=== PATIENT | male | born 1965 | race African-American/Black ===

== ENCOUNTER → 2017-03-17 | Outpatient (CLI) | payer BC ==
[2017-03-17 09:17] LABS: BASOPHILS % 0.8 % (0.0-2.0); EOSINOPHILS % 4.9 % (0.0-5.0); HEMATOCRIT. 44.9 % (42.0-52.0); HEMOGLOBIN. 15.1 g/dL (14.0-18.0); LYMPHOCYTES % 32.7 % (20.0-50.0); MEAN CORPUSCULAR HEMOGLOBIN 28.4 pg (28.0-32.0); MEAN CORPUSCULAR VOLUME 84.5 fL (80.0-94.0); MEAN PLATELET VOLUME 8.7 fl (7.4-10.4); MONOCYTES % 10.8 % (2.0-8.0); NEUTROPHILS % 50.8 % (40.0-76.0); PLATELET 154 x1000/uL (130-400); RED BLOOD CELL COUNT 5.32 mill/uL (4.7-6.1); RED CELL DISTRIBUTION WIDTH 15.5 % (11.6-14.6)
[2017-03-17 09:43] LABS: CARBON DIOXIDE 35 mEq/L (21-32); CHLORIDE 100 mEq/L (98-107); HDL CHOLESTEROL 35 mg/dL (40-59); LDL CHOLESTEROL 46 mg/dL (5-100)
[2017-03-17 09:44] LABS: CLARITY URINE CLEAR (CLEAR); COLOR URINE YELLOW (YELLOW); GLUCOSE URINE NEGATIVE (NEGATIVE); KETONES URINE NEGATIVE (NEGATIVE); LEUKOCYTE ESTERASE URINE NEGATIVE (NEGATIVE); NITRITE URINE NEGATIVE (NEGATIVE); OCCULT BLOOD URINE NEGATIVE (NEGATIVE); PH URINE 7.5 (4.5-8.0); PROTEIN URINE TRACE (NEGATIVE); SPECIFIC GRAVITY URINE 1.016 (1.005-1.030); UROBILINOGEN URINE 0.2 E.U./dL (0.2-1.0)
[2017-03-17 13:35] LABS: PROSTRATE SPECIFIC AG TOTAL 1.19 ng/mL (0.0-4.0)
== END | disposition home or self-care (01) ==
LOC: LAB 08:37
PROVIDERS: ATTEND Internal Medicine
DX: Z11.59 Encounter for screening for other viral diseases (principal); I10 Essential (primary) hypertension; E78.2 Mixed hyperlipidemia; R35.0 Frequency of micturition
CPT/HCPCS: 36415; 80053; 80061; 81001; 84153; 85025; 86803

== ENCOUNTER 2017-09-01 09:02 | Emergency (ER) | payer BC ==
[~2017-09-01] VITALS: Ht 177.8 cm; Wt 87.0 kg
[2017-09-01] MEDS ORDERED: SODIUM CHLORIDE 0.9% 1000ML BAG (SEPSIS BOLUS) IV ONE (09:45)
[2017-09-01] MEDS ORDERED: KETOROLAC 30MG/ML VIAL IV ONE (10:00)
[2017-09-01 10:15] LABS: BASOPHILS % 0.5 % (0.0-2.0); EOSINOPHILS % 0.5 % (0.0-5.0); HEMATOCRIT. 45.2 % (42.0-52.0); HEMOGLOBIN. 15.1 g/dL (14.0-18.0); LYMPHOCYTES % 9.8 % (20.0-50.0); MEAN CORPUSCULAR HEMOGLOBIN 28.8 pg (28.0-32.0); MEAN CORPUSCULAR VOLUME 86.1 fL (80.0-94.0); MEAN PLATELET VOLUME 8.8 fl (7.4-10.4); MONOCYTES % 8.8 % (2.0-8.0); NEUTROPHILS % 80.4 % (40.0-76.0); PLATELET 126 x1000/uL (130-400); RED BLOOD CELL COUNT 5.25 mill/uL (4.7-6.1); RED CELL DISTRIBUTION WIDTH 15.6 % (11.6-14.6)
[2017-09-01 10:18] LABS: INR 1.1; PARTIAL THROMBOPLASTIN TIME 27.6 sec (23.4-31.0); PROTHROMBIN TIME 11.2 sec (9.4-11.6)
[2017-09-01 10:25] LABS: CARBON DIOXIDE 31 mEq/L (21-32); CHLORIDE 101 mEq/L (98-107)
[2017-09-01 10:26] LABS: TROPONIN I < 0.02 ng/mL (0.00-0.04)
[2017-09-01 10:43] LABS: CLARITY URINE CLEAR (CLEAR); COLOR URINE YELLOW (YELLOW); GLUCOSE URINE NEGATIVE (NEGATIVE); KETONES URINE NEGATIVE (NEGATIVE); LEUKOCYTE ESTERASE URINE NEGATIVE (NEGATIVE); NITRITE URINE NEGATIVE (NEGATIVE); OCCULT BLOOD URINE TRACE (NEGATIVE); PROTEIN URINE NEGATIVE (NEGATIVE); SPECIFIC GRAVITY URINE 1.016 (1.005-1.030); UROBILINOGEN URINE 0.2 E.U./dL (0.2-1.0)
[2017-09-01] MEDS ORDERED: POTASSIUM CHLORIDE 20MEQ TABLET SR PO ONE (10:45)
[2017-09-01] MEDS ORDERED: PENICILLIN G BENZATHINE 1,200,000 UNITS/2ML SYR IM ONE (11:15)
[2017-09-01] MEDS ORDERED: CEFTRIAXONE 1 G PREMIX 50 ML IV ONE (11:15)
[2017-09-01] MEDS ORDERED: DEXAMETHASONE 10 MG/ML VIAL IV ONE (11:15)
[2017-09-01 14:53] VITALS: BP 169/99
== END 2017-09-01 15:01 | disposition home or self-care (01) ==
LOC: ER 09:43
DX: J02.0 Streptococcal pharyngitis (principal); I10 Essential (primary) hypertension; R73.9 Hyperglycemia, unspecified; R26.89 Other abnormalities of gait and mobility
CPT/HCPCS: 36415; 71010; 80053; 81001; 83605; 83690; 83735; 83880; 84484; 85025; 85610; 85730; 87040; 87086; 87430; 87804; 93005; 96361; 96365; 96372; 96375; 99285; J0561; J0696; J1100; J1885; J7030; Z7610

== ENCOUNTER → 2017-09-07 | Outpatient (CLI) | payer BC ==
[2017-09-07 11:36] LABS: CARBON DIOXIDE 37 mEq/L (21-32); CHLORIDE 98 mEq/L (98-107); HDL CHOLESTEROL 42 mg/dL (40-59); LDL CHOLESTEROL 59 mg/dL (5-100)
== END | disposition home or self-care (01) ==
LOC: LAB 10:43
PROVIDERS: ATTEND Internal Medicine
DX: E87.6 Hypokalemia (principal); E78.2 Mixed hyperlipidemia
CPT/HCPCS: 36415; 80048; 80061; 87186

== ENCOUNTER → 2017-09-28 | Outpatient (CLI) | payer BC ==
[2017-09-28 09:27] LABS: BASOPHILS % 0.8 % (0.0-2.0); EOSINOPHILS % 8.9 % (0.0-5.0); HEMATOCRIT. 47.2 % (42.0-52.0); HEMOGLOBIN. 15.7 g/dL (14.0-18.0); LYMPHOCYTES % 31.3 % (20.0-50.0); MEAN CORPUSCULAR HEMOGLOBIN 28.6 pg (28.0-32.0); MEAN CORPUSCULAR VOLUME 86.1 fL (80.0-94.0); MEAN PLATELET VOLUME 8.5 fl (7.4-10.4); MONOCYTES % 12.9 % (2.0-8.0); NEUTROPHILS % 46.1 % (40.0-76.0); PLATELET 155 x1000/uL (130-400); RED BLOOD CELL COUNT 5.48 mill/uL (4.7-6.1); RED CELL DISTRIBUTION WIDTH 16.1 % (11.6-14.6)
[2017-09-28 09:32] LABS: CLARITY URINE CLEAR (CLEAR); COLOR URINE YELLOW (YELLOW); KETONES URINE NEGATIVE (NEGATIVE); LEUKOCYTE ESTERASE URINE TRACE (NEGATIVE); NITRITE URINE NEGATIVE (NEGATIVE); OCCULT BLOOD URINE NEGATIVE (NEGATIVE); PH URINE 7.5 (4.5-8.0); PROTEIN URINE 1+ (NEGATIVE); SPECIFIC GRAVITY URINE 1.016 (1.005-1.030); UROBILINOGEN URINE 0.2 E.U./dL (0.2-1.0)
[2017-09-28 10:07] LABS: CARBON DIOXIDE 35 mEq/L (21-32); CHLORIDE 98 mEq/L (98-107); PHOSPHORUS 3.4 mg/dL (2.5-4.9); T4 FREE 1.02 ng/dL (0.76-1.46)
[2017-09-29 10:11] LABS: MICROALBUMIN RANDOM URINE 165.4 ug/mL (Not Estab.)
== END | disposition home or self-care (01) ==
LOC: LAB 08:59
PROVIDERS: ATTEND Internal Medicine Nephrology
DX: I10 Essential (primary) hypertension (principal)
CPT/HCPCS: 36415; 80053; 81001; 82043; 82088; 82533; 82570; 83735; 84100; 84439; 84443; 85025

== ENCOUNTER → 2017-12-02 | Outpatient (CLI) | payer BC ==
[2017-12-02 08:35] LABS: CLARITY URINE CLEAR (CLEAR); COLOR URINE YELLOW (YELLOW); KETONES URINE NEGATIVE (NEGATIVE); LEUKOCYTE ESTERASE URINE NEGATIVE (NEGATIVE); NITRITE URINE NEGATIVE (NEGATIVE); OCCULT BLOOD URINE TRACE (NEGATIVE); PROTEIN URINE 1+ (NEGATIVE); SPECIFIC GRAVITY URINE 1.015 (1.005-1.030); UROBILINOGEN URINE 0.2 E.U./dL (0.2-1.0)
[2017-12-02 08:50] LABS: CHLORIDE 104 mEq/L (98-107)
== END | disposition home or self-care (01) ==
LOC: LAB 08:04
PROVIDERS: ATTEND Internal Medicine Nephrology
DX: I10 Essential (primary) hypertension (principal); R80.0 Isolated proteinuria
CPT/HCPCS: 36415; 80048; 81003; 83735

== ENCOUNTER → 2017-12-16 | Outpatient (CLI) | payer BC ==
[2017-12-16 09:12] LABS: CHLORIDE 100 mEq/L (98-107)
== END | disposition home or self-care (01) ==
LOC: LAB 08:37
PROVIDERS: ATTEND Internal Medicine Nephrology
DX: I10 Essential (primary) hypertension (principal)
CPT/HCPCS: 36415; 80048

== ENCOUNTER → 2017-12-22 | Outpatient (CLI) | payer BC ==
[2017-12-22 08:55] LABS: EOSINOPHILS % 3.6 % (0.0-5.0); HEMATOCRIT. 47.5 % (42.0-52.0); HEMOGLOBIN. 15.6 g/dL (14.0-18.0); LYMPHOCYTES % 36.2 % (20.0-50.0); MEAN CORPUSCULAR HEMOGLOBIN 28.3 pg (28.0-32.0); MEAN CORPUSCULAR VOLUME 85.9 fL (80.0-94.0); MEAN PLATELET VOLUME 8.3 fl (7.4-10.4); MONOCYTES % 13.9 % (2.0-8.0); NEUTROPHILS % 45.3 % (40.0-76.0); PLATELET 149 x1000/uL (130-400); RED BLOOD CELL COUNT 5.53 mill/uL (4.7-6.1)
[2017-12-22 08:58] LABS: CLARITY URINE CLEAR (CLEAR); COLOR URINE YELLOW (YELLOW); KETONES URINE NEGATIVE (NEGATIVE); LEUKOCYTE ESTERASE URINE NEGATIVE (NEGATIVE); NITRITE URINE NEGATIVE (NEGATIVE); OCCULT BLOOD URINE TRACE (NEGATIVE); PH URINE 7.5 (4.5-8.0); PROTEIN URINE 1+ (NEGATIVE); SPECIFIC GRAVITY URINE 1.012 (1.005-1.030); UROBILINOGEN URINE 0.2 E.U./dL (0.2-1.0)
[2017-12-22 13:57] LABS: CHLORIDE 102 mEq/L (98-107)
== END | disposition home or self-care (01) ==
LOC: LAB 08:36
PROVIDERS: ATTEND Internal Medicine Nephrology
DX: I10 Essential (primary) hypertension (principal)
CPT/HCPCS: 36415; 80053; 81003; 83735; 85025; 87086

== ENCOUNTER → 2018-01-28 | Outpatient (CLI) | payer BC ==
[2018-01-28 08:31] LABS: BASOPHILS % 1.2 % (0.0-2.0); EOSINOPHILS % 2.9 % (0.0-5.0); HEMATOCRIT. 46.5 % (42.0-52.0); HEMOGLOBIN. 15.3 g/dL (14.0-18.0); LYMPHOCYTES % 38.6 % (20.0-50.0); MEAN CORPUSCULAR HEMOGLOBIN 27.7 pg (28.0-32.0); MEAN CORPUSCULAR VOLUME 84.5 fL (80.0-94.0); MEAN PLATELET VOLUME 8.6 fl (7.4-10.4); MONOCYTES % 12.5 % (2.0-8.0); NEUTROPHILS % 44.8 % (40.0-76.0); PLATELET 165 x1000/uL (130-400); RED BLOOD CELL COUNT 5.51 mill/uL (4.7-6.1); RED CELL DISTRIBUTION WIDTH 15.8 % (11.6-14.6)
[2018-01-28 08:34] LABS: CLARITY URINE CLEAR (CLEAR); COLOR URINE YELLOW (YELLOW); KETONES URINE NEGATIVE (NEGATIVE); LEUKOCYTE ESTERASE URINE TRACE (NEGATIVE); NITRITE URINE NEGATIVE (NEGATIVE); OCCULT BLOOD URINE 1+ (NEGATIVE); PH URINE 8.5 (4.5-8.0); PROTEIN URINE 1+ (NEGATIVE); SPECIFIC GRAVITY URINE 1.015 (1.005-1.030); UROBILINOGEN URINE 0.2 E.U./dL (0.2-1.0)
[2018-01-28 08:54] LABS: CHLORIDE 99 mEq/L (98-107)
== END | disposition home or self-care (01) ==
LOC: LAB 08:02
PROVIDERS: ATTEND Internal Medicine Nephrology
DX: I10 Essential (primary) hypertension (principal); E87.6 Hypokalemia
CPT/HCPCS: 36415; 80048; 81003; 85025; 87086

== ENCOUNTER 2018-03-02 08:21 | Emergency (ER) | payer BC ==
[~2018-03-02] VITALS: Ht 177.8 cm; Wt 87.0 kg
[2018-03-02] MEDS ORDERED: DIAZEPAM 2 MG TABLET PO ONE (09:00)
[2018-03-02] MEDS ORDERED: ONDANSETRON 4MG ODT PO ONE (09:00)
[2018-03-02] MEDS ORDERED: TRAMADOL 50MG TABLET PO ONE (09:00)
[2018-03-02 11:26] VITALS: BP 144/84
== END 2018-03-02 11:29 | disposition home or self-care (01) ==
LOC: ER 08:53
DX: S16.1XXA Strain of muscle, fascia and tendon at neck level, initial encounter (principal); R51 Headache; I10 Essential (primary) hypertension; V43.52XA Car driver injured in collision with other type car in traffic accident, initial encounter; V49.88XA Car occupant (driver) (passenger) injured in other specified transport accidents, initial encounter; Y93.89 Activity, other specified; Y99.8 Other external cause status; Y92.410 Unspecified street and highway as the place of occurrence of the external cause
CPT/HCPCS: 70450; 72125; 99284; Q0162

== ENCOUNTER → 2018-03-06 | Outpatient (CLI) | payer BC ==
[2018-03-06 09:33] LABS: KETONES URINE NEGATIVE (NEGATIVE); LEUKOCYTE ESTERASE URINE NEGATIVE (NEGATIVE); NITRITE URINE NEGATIVE (NEGATIVE); OCCULT BLOOD URINE TRACE (NEGATIVE); PH URINE 7.5 (4.5-8.0); PROTEIN URINE 1+ (NEGATIVE); SPECIFIC GRAVITY URINE 1.013 (1.005-1.030); UROBILINOGEN URINE 0.2 E.U./dL (0.2-1.0)
[2018-03-06 09:35] LABS: CLARITY URINE CLEAR (CLEAR); COLOR URINE YELLOW (YELLOW)
[2018-03-06 09:41] LABS: CHLORIDE 104 mEq/L (98-107)
== END | disposition home or self-care (01) ==
LOC: LAB 08:43
PROVIDERS: ATTEND Internal Medicine Nephrology
DX: I10 Essential (primary) hypertension (principal); E87.6 Hypokalemia
CPT/HCPCS: 36415; 80048; 81003; 83735

== ENCOUNTER → 2019-01-18 | Outpatient (CLI) | payer BC ==
[2019-01-18 09:37] LABS: EOSINOPHILS % 3.6 % (0.0-5.0); HEMATOCRIT. 46.4 % (42.0-52.0); HEMOGLOBIN. 15.6 g/dL (14.0-18.0); LYMPHOCYTES % 31.9 % (20.0-50.0); MEAN CORPUSCULAR HEMOGLOBIN 29.4 pg (28.0-32.0); MEAN CORPUSCULAR VOLUME 87.7 fL (80.0-94.0); MEAN PLATELET VOLUME 8.1 fl (7.4-10.4); MONOCYTES % 12.2 % (2.0-8.0); NEUTROPHILS % 51.3 % (40.0-76.0); PLATELET 166 x1000/uL (130-400); RED CELL DISTRIBUTION WIDTH 15.8 % (11.6-14.6)
[2019-01-18 09:41] LABS: CLARITY URINE CLEAR (CLEAR); COLOR URINE YELLOW (YELLOW); KETONES URINE NEGATIVE (NEGATIVE); LEUKOCYTE ESTERASE URINE NEGATIVE (NEGATIVE); NITRITE URINE NEGATIVE (NEGATIVE); OCCULT BLOOD URINE NEGATIVE (NEGATIVE); PROTEIN URINE 1+ (NEGATIVE); SPECIFIC GRAVITY URINE 1.022 (1.005-1.030); UROBILINOGEN URINE 0.2 E.U./dL (0.2-1.0)
[2019-01-18 09:47] LABS: CHLORIDE 102 mEq/L (98-107)
== END | disposition home or self-care (01) ==
LOC: LAB 09:08
PROVIDERS: ATTEND Internal Medicine Nephrology
DX: I10 Essential (primary) hypertension (principal); E87.6 Hypokalemia
CPT/HCPCS: 36415; 80048

== ENCOUNTER → 2019-03-28 | Outpatient (CLI) | payer BC ==
[2019-03-28 08:48] LABS: CHLORIDE 105 mEq/L (98-107)
[2019-03-28 08:48] LABS: CLARITY URINE CLEAR (CLEAR); COLOR URINE YELLOW (YELLOW); SPECIFIC GRAVITY URINE 1.012 (1.005-1.030)
[2019-03-28 08:49] LABS: KETONES URINE NEGATIVE (NEGATIVE); LEUKOCYTE ESTERASE URINE NEGATIVE (NEGATIVE); NITRITE URINE NEGATIVE (NEGATIVE); OCCULT BLOOD URINE NEGATIVE (NEGATIVE); PROTEIN URINE TRACE (NEGATIVE); UROBILINOGEN URINE 0.2 E.U./dL (0.2-1.0)
== END | disposition home or self-care (01) ==
LOC: LAB 08:14
PROVIDERS: ATTEND Internal Medicine Nephrology
DX: I10 Essential (primary) hypertension (principal)
CPT/HCPCS: 36415; 80048

== ENCOUNTER 2019-04-02 19:18 | Emergency (ER) | payer BC ==
[~2019-04-02] VITALS: Ht 175.3 cm; Wt 87.0 kg
[2019-04-02] MEDS ORDERED: KETOROLAC 30MG/ML VIAL IV STA (21:56)
[2019-04-02 23:06] LABS: BASOPHILS % 1.4 % (0.0-2.0); EOSINOPHILS % 5.6 % (0.0-5.0); HEMATOCRIT. 44.8 % (42.0-52.0); LYMPHOCYTES % 33.8 % (20.0-50.0); MEAN CORPUSCULAR VOLUME 89.5 fL (80.0-94.0); MEAN PLATELET VOLUME 9.3 fl (7.4-10.4); MONOCYTES % 10.6 % (2.0-8.0); NEUTROPHILS % 48.6 % (40.0-76.0); PLATELET 135 x1000/uL (130-400); RED CELL DISTRIBUTION WIDTH 15.1 % (11.6-14.6)
[2019-04-02 23:14] LABS: CHLORIDE 104 mEq/L (98-107)
[2019-04-03 00:50] VITALS: BP 145/75
== END 2019-04-03 01:03 | disposition home or self-care (01) ==
LOC: ER 19:18
DX: M62.838 Other muscle spasm (principal); I10 Essential (primary) hypertension
CPT/HCPCS: 36415; 71045; 80053; 84484; 85025; 93005; 96374; 99284; J1885; Z7610

== ENCOUNTER 2019-08-05 19:02 | Emergency (ER) | payer BC, OTHER ==
[~2019-08-05] VITALS: Ht 175.3 cm; Wt 84.0 kg
[2019-08-05 19:56] VITALS: BP 132/84
== END 2019-08-05 19:57 | disposition home or self-care (01) ==
LOC: ER 19:02
DX: Z77.21 Contact with and (suspected) exposure to potentially hazardous body fluids (principal); I10 Essential (primary) hypertension
CPT/HCPCS: 99281

== ENCOUNTER → 2020-04-08 | Outpatient (CLI) | payer BC ==
[2020-04-08 10:25] LABS: BASOPHILS % 0.7 % (0.0-2.0); EOSINOPHILS % 1.9 % (0.0-5.0); HEMATOCRIT. 47.6 % (42.0-52.0); HEMOGLOBIN. 16.2 g/dL (14.0-18.0); LYMPHOCYTES % 36.8 % (20.0-50.0); MEAN CORPUSCULAR VOLUME 88.1 fL (80.0-94.0); MEAN PLATELET VOLUME 9.3 fl (7.4-10.4); MONOCYTES % 10.6 % (2.0-8.0); PLATELET 136 x1000/uL (130-400); RED CELL DISTRIBUTION WIDTH 15.4 % (11.6-14.6)
[2020-04-08 10:37] LABS: CHLORIDE 100 mEq/L (98-107)
[2020-04-08 10:44] LABS: LDL CHOLESTEROL 116 mg/dL (5-100)
[2020-04-08 10:45] LABS: HDL CHOLESTEROL 39 mg/dL (40-59)
[2020-04-09 17:06] LABS: *CREATININE RANDOM URINE 210.3 mg/dL (Not Estab.); MICROALBUMIN RANDOM URINE 655.5 ug/mL (Not Estab.)
== END | disposition home or self-care (01) ==
LOC: LAB 09:44
PROVIDERS: ATTEND Internal Medicine
DX: E11.65 Type 2 diabetes mellitus with hyperglycemia (principal); E78.2 Mixed hyperlipidemia
CPT/HCPCS: 36415; 80053; 80061; 82043; 82570; 83036; 85025

== ENCOUNTER → 2020-09-11 | Outpatient (CLI) | payer BC ==
[2020-09-11 08:51] LABS: CHLORIDE 105 mEq/L (98-107)
== END | disposition home or self-care (01) ==
LOC: LAB 08:25
PROVIDERS: ATTEND Internal Medicine Nephrology
DX: I12.9 Hypertensive chronic kidney disease with stage 1 through stage 4 chronic kidney disease, or unspecified chronic kidney disease (principal); N18.2 Chronic kidney disease, stage 2 (mild)
CPT/HCPCS: 36415; 80053

== ENCOUNTER → 2021-04-05 | Outpatient (CLI) | payer BC ==
[2021-04-05 11:10] LABS: HEMATOCRIT. 41.1 % (42.0-52.0); HEMOGLOBIN. 14.2 g/dL (14.0-18.0); MEAN CORPUSCULAR HEMOGLOBIN 30.1 pg (28.0-32.0); MEAN CORPUSCULAR VOLUME 87.2 fL (80.0-94.0); PLATELET 164 x1000/uL (130-400); RED BLOOD CELL COUNT 4.72 mill/uL (4.7-6.1); RED CELL DISTRIBUTION WIDTH 14.8 % (11.6-14.6)
[2021-04-05 11:14] LABS: CLARITY URINE CLEAR (CLEAR); COLOR URINE YELLOW (YELLOW); KETONES URINE NEGATIVE (NEGATIVE); LEUKOCYTE ESTERASE URINE NEGATIVE (NEGATIVE); NITRITE URINE NEGATIVE (NEGATIVE); OCCULT BLOOD URINE NEGATIVE (NEGATIVE); PROTEIN URINE 1+ (NEGATIVE); SPECIFIC GRAVITY URINE 1.015 (1.005-1.030); UROBILINOGEN URINE 0.2 E.U./dL (0.2-1.0)
[2021-04-05 11:53] LABS: CHLORIDE 95 mEq/L (98-107)
[2021-04-05 18:48] LABS: PLATELET ESTIMATE NORMAL
[2021-04-06 10:07] LABS: *CREATININE RANDOM URINE 168.1 mg/dL (Not Estab.); MICROALBUMIN RANDOM URINE 100.5 ug/mL (Not Estab.)
== END | disposition home or self-care (01) ==
LOC: LAB 10:30
PROVIDERS: ATTEND Internal Medicine Nephrology
DX: I10 Essential (primary) hypertension (principal); E78.5 Hyperlipidemia, unspecified; E87.6 Hypokalemia
CPT/HCPCS: 36415; 80053; 81003; 82043; 82570; 85025

== ENCOUNTER → 2021-05-10 | Outpatient (CLI) | payer BC ==
[2021-05-10 10:21] LABS: BASOPHILS % 0.9 % (0.0-2.0); EOSINOPHILS % 1.6 % (0.0-5.0); HEMATOCRIT. 42.4 % (42.0-52.0); HEMOGLOBIN. 14.4 g/dL (14.0-18.0); LYMPHOCYTES % 33.5 % (20.0-50.0); MEAN CORPUSCULAR HEMOGLOBIN 29.8 pg (28.0-32.0); MEAN CORPUSCULAR VOLUME 87.8 fL (80.0-94.0); MEAN PLATELET VOLUME 8.3 fl (7.4-10.4); PLATELET 181 x1000/uL (130-400); RED BLOOD CELL COUNT 4.83 mill/uL (4.7-6.1)
[2021-05-10 10:33] LABS: CLARITY URINE CLEAR (CLEAR); COLOR URINE DARK YELLOW (YELLOW); KETONES URINE TRACE (NEGATIVE); LEUKOCYTE ESTERASE URINE NEGATIVE (NEGATIVE); NITRITE URINE NEGATIVE (NEGATIVE); OCCULT BLOOD URINE NEGATIVE (NEGATIVE); PH URINE 5.5 (4.5-8.0); PROTEIN URINE 1+ (NEGATIVE); SPECIFIC GRAVITY URINE 1.023 (1.005-1.030)
[2021-05-10 10:44] LABS: CHLORIDE 106 mEq/L (98-107)
[2021-05-10 10:54] LABS: LDL CHOLESTEROL 109 mg/dL (5-100)
[2021-05-10 10:56] LABS: HDL CHOLESTEROL 47 mg/dL (40-59)
== END | disposition home or self-care (01) ==
LOC: LAB 09:44
PROVIDERS: ATTEND Physician Assistant
DX: Z00.00 Encounter for general adult medical examination without abnormal findings (principal)
CPT/HCPCS: 36415; 80053; 80061; 81003; 82652; 83036; 84153; 84443; 85025; G0103

== ENCOUNTER → 2021-08-02 | Outpatient (CLI) | payer BC ==
[2021-08-02 08:15] LABS: CLARITY URINE CLEAR (CLEAR); COLOR URINE YELLOW (YELLOW); KETONES URINE NEGATIVE (NEGATIVE); LEUKOCYTE ESTERASE URINE NEGATIVE (NEGATIVE); NITRITE URINE NEGATIVE (NEGATIVE); OCCULT BLOOD URINE NEGATIVE (NEGATIVE); PROTEIN URINE 1+ (NEGATIVE); SPECIFIC GRAVITY URINE 1.022 (1.005-1.030); UROBILINOGEN URINE 0.2 E.U./dL (0.2-1.0)
[2021-08-02 08:16] LABS: EOSINOPHILS % 2.8 % (0.0-5.0); HEMATOCRIT. 41.9 % (42.0-52.0); MEAN CORPUSCULAR HEMOGLOBIN 30.1 pg (28.0-32.0); MEAN CORPUSCULAR VOLUME 89.9 fL (80.0-94.0); MEAN PLATELET VOLUME 8.6 fl (7.4-10.4); MONOCYTES % 11.8 % (2.0-8.0); NEUTROPHILS % 50.4 % (40.0-76.0); PLATELET 164 x1000/uL (130-400); RED BLOOD CELL COUNT 4.66 mill/uL (4.7-6.1)
[2021-08-02 08:25] LABS: CHLORIDE 107 mEq/L (98-107)
[2021-08-03 08:07] LABS: *CREATININE RANDOM URINE 276.7 mg/dL (Not Estab.); MICROALBUMIN RANDOM URINE 125.9 ug/mL (Not Estab.)
== END | disposition home or self-care (01) ==
LOC: LAB 07:48
PROVIDERS: ATTEND Internal Medicine Nephrology
DX: I12.9 Hypertensive chronic kidney disease with stage 1 through stage 4 chronic kidney disease, or unspecified chronic kidney disease (principal); E11.22 Type 2 diabetes mellitus with diabetic chronic kidney disease; N18.30 Chronic kidney disease, stage 3 unspecified; R80.1 Persistent proteinuria, unspecified
CPT/HCPCS: 36415; 80048; 81003; 82043; 82570; 83036; 83735; 84100; 85025

== ENCOUNTER → 2021-12-21 | Outpatient (CLI) | payer BC ==
[2021-12-21 08:16] LABS: CLARITY URINE CLEAR (CLEAR); COLOR URINE YELLOW (YELLOW); KETONES URINE TRACE (NEGATIVE); LEUKOCYTE ESTERASE URINE 2+ (NEGATIVE); NITRITE URINE NEGATIVE (NEGATIVE); OCCULT BLOOD URINE NEGATIVE (NEGATIVE); PH URINE 5.5 (4.5-8.0); PROTEIN URINE NEGATIVE (NEGATIVE); UROBILINOGEN URINE 0.2 E.U./dL (0.2-1.0)
[2021-12-21 08:30] LABS: BASOPHILS % 0.9 % (0.0-2.0); EOSINOPHILS % 2.5 % (0.0-5.0); HEMATOCRIT. 39.5 % (42.0-52.0); HEMOGLOBIN. 13.1 g/dL (14.0-18.0); LYMPHOCYTES % 30.8 % (20.0-50.0); MEAN CORPUSCULAR HEMOGLOBIN 29.6 pg (28.0-32.0); MEAN CORPUSCULAR VOLUME 89.2 fL (80.0-94.0); MEAN PLATELET VOLUME 8.7 fl (7.4-10.4); MONOCYTES % 11.3 % (2.0-8.0); NEUTROPHILS % 54.5 % (40.0-76.0); PLATELET 153 x1000/uL (130-400); RED BLOOD CELL COUNT 4.43 mill/uL (4.7-6.1); RED CELL DISTRIBUTION WIDTH 15.4 % (11.6-14.6)
[2021-12-21 08:41] LABS: PHOSPHORUS 3.3 mg/dL (2.5-4.9)
[2021-12-22 13:07] LABS: *CREATININE RANDOM URINE 176.3 mg/dL (Not Estab.); MICROALBUMIN RANDOM URINE 13.8 ug/mL (Not Estab.)
== END | disposition home or self-care (01) ==
LOC: LAB 07:48
PROVIDERS: ATTEND Internal Medicine Nephrology
DX: I12.9 Hypertensive chronic kidney disease with stage 1 through stage 4 chronic kidney disease, or unspecified chronic kidney disease (principal); E11.22 Type 2 diabetes mellitus with diabetic chronic kidney disease; N18.30 Chronic kidney disease, stage 3 unspecified; E87.5 Hyperkalemia
CPT/HCPCS: 36415; 80048; 81003; 82043; 82570; 83036; 83735; 84100; 85025

== ENCOUNTER → 2022-02-24 | Outpatient (CLI) | payer BC ==
[2022-02-24 08:38] LABS: CLARITY URINE CLEAR (CLEAR); COLOR URINE YELLOW (YELLOW); KETONES URINE TRACE (NEGATIVE); LEUKOCYTE ESTERASE URINE TRACE (NEGATIVE); NITRITE URINE NEGATIVE (NEGATIVE); OCCULT BLOOD URINE NEGATIVE (NEGATIVE); PH URINE 5.5 (4.5-8.0); PROTEIN URINE 1+ (NEGATIVE); SPECIFIC GRAVITY URINE 1.024 (1.005-1.030)
[2022-02-24 08:39] LABS: BASOPHILS % 0.9 % (0.0-2.0); EOSINOPHILS % 2.7 % (0.0-5.0); HEMATOCRIT. 42.8 % (42.0-52.0); HEMOGLOBIN. 14.1 g/dL (14.0-18.0); LYMPHOCYTES % 30.3 % (20.0-50.0); MEAN CORPUSCULAR VOLUME 90.7 fL (80.0-94.0); MEAN PLATELET VOLUME 8.6 fl (7.4-10.4); MONOCYTES % 9.8 % (2.0-8.0); NEUTROPHILS % 56.3 % (40.0-76.0); PLATELET 166 x1000/uL (130-400); RED BLOOD CELL COUNT 4.71 mill/uL (4.7-6.1); RED CELL DISTRIBUTION WIDTH 15.4 % (11.6-14.6)
[2022-02-24 09:03] LABS: CHLORIDE 107 mEq/L (98-107)
[2022-02-24 09:10] LABS: CREATINE KINASE 112 IU/L (39-308); PHOSPHORUS 3.3 mg/dL (2.5-4.9)
[2022-02-25 05:09] LABS: % FREE PSA 27.1 % (.); PROSTATE SPECIFIC AG TOTAL 2.1 ng/mL (0.0-4.0); PSA FREE 0.57 ng/mL
[2022-02-25 06:11] LABS: *CREATININE RANDOM URINE 325.3 mg/dL (Not Estab.); MICROALBUMIN RANDOM URINE 110.1 ug/mL (Not Estab.)
== END | disposition home or self-care (01) ==
LOC: LAB 08:04
PROVIDERS: ATTEND Internal Medicine Nephrology
DX: I12.9 Hypertensive chronic kidney disease with stage 1 through stage 4 chronic kidney disease, or unspecified chronic kidney disease (principal); E11.22 Type 2 diabetes mellitus with diabetic chronic kidney disease; N18.30 Chronic kidney disease, stage 3 unspecified; E87.6 Hypokalemia
CPT/HCPCS: 36415; 80053; 81003; 82043; 82550; 82570; 82610; 83036; 83735; 84100; 84153; 84154; 85025

== ENCOUNTER → 2022-03-01 | Outpatient (CLI) | payer BC | END | disposition home or self-care (01) | LOC: US 09:51 | PROVIDERS: ATTEND Internal Medicine Nephrology | DX: N28.1 Cyst of kidney, acquired (principal); N40.0 Benign prostatic hyperplasia without lower urinary tract symptoms; N18.2 Chronic kidney disease, stage 2 (mild) | CPT/HCPCS: 76770 ==

== ENCOUNTER → 2022-08-15 | Outpatient (CLI) | payer BC ==
[2022-08-15 08:28] LABS: BASOPHILS % 0.9 % (0.0-2.0); HEMATOCRIT. 45.1 % (42.0-52.0); HEMOGLOBIN. 14.9 g/dL (14.0-18.0); LYMPHOCYTES % 41.7 % (20.0-50.0); MEAN CORPUSCULAR VOLUME 87.5 fL (80.0-94.0); MEAN PLATELET VOLUME 8.7 fl (7.4-10.4); MONOCYTES % 9.5 % (2.0-8.0); NEUTROPHILS % 44.9 % (40.0-76.0); PLATELET 157 x1000/uL (130-400); RED BLOOD CELL COUNT 5.16 mill/uL (4.7-6.1); RED CELL DISTRIBUTION WIDTH 16.8 % (11.6-14.6)
[2022-08-15 08:53] LABS: CHLORIDE 102 mEq/L (98-107)
[2022-08-15 09:28] LABS: CLARITY URINE CLEAR (CLEAR); COLOR URINE YELLOW (YELLOW); KETONES URINE NEGATIVE (NEGATIVE); LEUKOCYTE ESTERASE URINE NEGATIVE (NEGATIVE); NITRITE URINE NEGATIVE (NEGATIVE); OCCULT BLOOD URINE NEGATIVE (NEGATIVE); PROTEIN URINE 1+ (NEGATIVE); SPECIFIC GRAVITY URINE 1.019 (1.005-1.030); UROBILINOGEN URINE 0.2 E.U./dL (0.2-1.0)
[2022-08-15 09:47] LABS: PHOSPHORUS 3.8 mg/dL (2.5-4.9)
[2022-08-16 08:11] LABS: *CREATININE RANDOM URINE 210.9 mg/dL (Not Estab.); MICROALBUMIN RANDOM URINE 149.9 ug/mL (Not Estab.)
== END | disposition home or self-care (01) ==
LOC: LAB 08:01
PROVIDERS: ATTEND Internal Medicine Nephrology
DX: I12.9 Hypertensive chronic kidney disease with stage 1 through stage 4 chronic kidney disease, or unspecified chronic kidney disease (principal); N18.30 Chronic kidney disease, stage 3 unspecified; E11.9 Type 2 diabetes mellitus without complications
CPT/HCPCS: 36415; 80053; 81003; 82043; 82570; 83036; 83735; 84100; 85025

== ENCOUNTER → 2023-02-23 | Outpatient (CLI) | payer BC ==
[2023-02-23 12:35] LABS: BASOPHILS % 0.8 % (0.0-2.0); EOSINOPHILS % 3.6 % (0.0-5.0); HEMOGLOBIN. 12.7 g/dL (14.0-18.0); LYMPHOCYTES % 32.9 % (20.0-50.0); MEAN CORPUSCULAR HEMOGLOBIN 31.2 pg (28.0-32.0); MEAN CORPUSCULAR VOLUME 93.1 fL (80.0-94.0); MEAN PLATELET VOLUME 7.7 fl (7.4-10.4); MONOCYTES % 9.9 % (2.0-8.0); NEUTROPHILS % 52.8 % (40.0-76.0); PLATELET 193 x1000/uL (130-400); RED BLOOD CELL COUNT 4.08 mill/uL (4.7-6.1); RED CELL DISTRIBUTION WIDTH 13.9 % (11.6-14.6)
[2023-02-23 12:43] LABS: CLARITY URINE CLEAR (CLEAR); COLOR URINE YELLOW (YELLOW); KETONES URINE TRACE (NEGATIVE); LEUKOCYTE ESTERASE URINE TRACE (NEGATIVE); NITRITE URINE NEGATIVE (NEGATIVE); OCCULT BLOOD URINE NEGATIVE (NEGATIVE); PH URINE 5.5 (4.5-8.0); PROTEIN URINE TRACE (NEGATIVE); SPECIFIC GRAVITY URINE 1.022 (1.005-1.030); UROBILINOGEN URINE 0.2 E.U./dL (0.2-1.0)
[2023-02-23 12:44] LABS: CHLORIDE 105 mEq/L (98-107)
[2023-02-23 12:51] LABS: PHOSPHORUS 2.3 mg/dL (2.5-4.9)
== END | disposition home or self-care (01) ==
LOC: LAB 12:01
PROVIDERS: ATTEND Internal Medicine Nephrology
DX: I10 Essential (primary) hypertension (principal); E11.9 Type 2 diabetes mellitus without complications
CPT/HCPCS: 36415; 80053; 81003; 82043; 82570; 83036; 83735; 84100; 85025

== ENCOUNTER → 2023-06-20 | Outpatient (CLI) | payer BC ==
[2023-06-20 09:36] LABS: BASOPHILS % 1.1 % (0.0-2.0); EOSINOPHILS % 4.5 % (0.0-5.0); HEMATOCRIT. 39.8 % (42.0-52.0); HEMOGLOBIN. 13.3 g/dL (14.0-18.0); MEAN CORPUSCULAR HEMOGLOBIN 29.8 pg (28.0-32.0); MEAN CORPUSCULAR HGB CONC 33.5 g/dL (31.0-37.0); MEAN CORPUSCULAR VOLUME 88.9 fL (80.0-94.0); MONOCYTES % 12.3 % (2.0-8.0); NEUTROPHILS % 45.1 % (40.0-76.0); PLATELET 169 x1000/uL (130-400); RED BLOOD CELL COUNT 4.47 mill/uL (4.7-6.1); RED CELL DISTRIBUTION WIDTH 15.6 % (11.6-14.6); WHITE BLOOD COUNT 5.3 x1000/uL (4.5-11.0)
[2023-06-20 09:55] LABS: CHLORIDE 105 mEq/L (98-107); INDEX HEMOLYSI 1 (1-3); INDEX ICTERIC 1 (1-4); INDEX LIPEMIC 1 (1-3); POTASSIUM 4.1 mEq/L (3.5-5.1); SODIUM 135 mEq/L (136-145)
[2023-06-20 10:09] LABS: ALANINE AMINOTRANSFERASE 8 IU/L (13-61); ALBUMIN 3.5 g/dL (3.4-5.0); ASPARTATE AMINOTRANSFERASE 15 IU/L (15-37); BILIRUBIN TOTAL 0.3 mg/dL (0.1-1.0); CALCIUM 8.5 mg/dL (8.5-10.1); CARBON DIOXIDE 26 mEq/L (21-32); CREATININE 1.3 mg/dL (0.6-1.3); GLUCOSE 103 mg/dL (70-105); PHOSPHORUS 2.8 mg/dL (2.5-4.9); PROTEIN TOTAL 7.8 g/dL (6.0-8.3); UREA NITROGEN BLOOD 17 mg/dL (7-21); URIC ACID 5.2 mg/dL (2.6-7.2)
[2023-06-21 13:11] LABS: *CREATININE RANDOM URINE 179.4 mg/dL (Not Estab.); MICROALBUMIN RANDOM URINE 15.6 ug/mL (Not Estab.)
== END | disposition home or self-care (01) ==
LOC: LAB 08:58
PROVIDERS: ATTEND Internal Medicine Nephrology
DX: I12.9 Hypertensive chronic kidney disease with stage 1 through stage 4 chronic kidney disease, or unspecified chronic kidney disease (principal); E11.22 Type 2 diabetes mellitus with diabetic chronic kidney disease; N18.30 Chronic kidney disease, stage 3 unspecified; E87.5 Hyperkalemia
CPT/HCPCS: 36415; 80053; 82043; 82570; 82610; 83735; 84100; 84550; 85025

== ENCOUNTER → 2023-12-05 | Outpatient (CLI) | payer BC ==
[2023-12-05 08:20] LABS: BASOPHILS % 0.8 % (0.0-2.0); EOSINOPHILS % 12.7 % (0.0-5.0); HEMATOCRIT. 43.4 % (42.0-52.0); HEMOGLOBIN. 14.2 g/dL (14.0-18.0); LYMPHOCYTES % 26.5 % (20.0-50.0); MEAN CORPUSCULAR HEMOGLOBIN 28.7 pg (28.0-32.0); MEAN CORPUSCULAR HGB CONC 32.7 g/dL (31.0-37.0); MEAN CORPUSCULAR VOLUME 87.9 fL (80.0-94.0); MONOCYTES % 10.6 % (2.0-8.0); NEUTROPHILS % 49.4 % (40.0-76.0); PLATELET 185 x1000/uL (130-400); RED BLOOD CELL COUNT 4.94 mill/uL (4.7-6.1); RED CELL DISTRIBUTION WIDTH 15.6 % (11.6-14.6); WHITE BLOOD COUNT 6.4 x1000/uL (4.5-11.0)
[2023-12-05 08:37] LABS: ALANINE AMINOTRANSFERASE 11 IU/L (10-49); ALBUMIN 4.2 g/dL (3.2-4.8); ASPARTATE AMINOTRANSFERASE 22 IU/L (<34); BILIRUBIN TOTAL 0.4 mg/dL (0.1-1.0); CALCIUM 8.9 mg/dL (8.7-10.4); CARBON DIOXIDE 34 mEq/L (21-32); CHLORIDE 103 mEq/L (98-107); CREATININE 1.2 mg/dL (0.6-1.3); GLUCOSE 116 mg/dL (70-105); PHOSPHORUS 2.3 mg/dL (2.5-4.9); POTASSIUM 3.5 mEq/L (3.5-5.1); PROTEIN TOTAL 8.1 g/dL (6.0-8.3); SODIUM 141 mEq/L (136-145); UREA NITROGEN BLOOD 15 mg/dL (9-23)
[2023-12-05 08:47] LABS: CLARITY URINE CLEAR (CLEAR); COLOR URINE YELLOW (YELLOW); GLUCOSE URINE NEGATIVE (NEGATIVE); KETONES URINE NEGATIVE (NEGATIVE); LEUKOCYTE ESTERASE URINE TRACE (NEGATIVE); NITRITE URINE NEGATIVE (NEGATIVE); OCCULT BLOOD URINE NEGATIVE (NEGATIVE); PROTEIN URINE 2+ (NEGATIVE); SPECIFIC GRAVITY URINE 1.018 (1.005-1.030)
[2023-12-05 09:06] LABS: RBC URINE 0-2 /hpf (0-2); SQUAMOUS EPITHELIAL CELL URINE FEW /lpf (RARE/1+)
[2023-12-05 09:12] LABS: BACTERIA URINE TRACE
[2023-12-06 14:13] LABS: *CREATININE RANDOM URINE 184.6 mg/dL (Not Estab.); MICROALBUMIN RANDOM URINE 395.5 ug/mL (Not Estab.)
== END | disposition home or self-care (01) ==
LOC: LAB 07:48
PROVIDERS: ATTEND Internal Medicine Nephrology
DX: I12.9 Hypertensive chronic kidney disease with stage 1 through stage 4 chronic kidney disease, or unspecified chronic kidney disease (principal); E11.22 Type 2 diabetes mellitus with diabetic chronic kidney disease; N18.30 Chronic kidney disease, stage 3 unspecified; E87.5 Hyperkalemia
CPT/HCPCS: 36415; 80053; 81003; 82043; 82570; 83036; 83735; 84100; 85025

== ENCOUNTER → 2024-02-20 | Outpatient (CLI) | payer BC ==
[2024-02-20 09:32] LABS: CLARITY URINE CLEAR (CLEAR); COLOR URINE YELLOW (YELLOW); GLUCOSE URINE NEGATIVE (NEGATIVE); KETONES URINE NEGATIVE (NEGATIVE); LEUKOCYTE ESTERASE URINE NEGATIVE (NEGATIVE); NITRITE URINE NEGATIVE (NEGATIVE); OCCULT BLOOD URINE NEGATIVE (NEGATIVE); PROTEIN URINE 2+ (NEGATIVE); SPECIFIC GRAVITY URINE 1.017 (1.005-1.030); UROBILINOGEN URINE 0.2 E.U./dL (0.2-1.0)
[2024-02-20 09:54] LABS: BACTERIA URINE FEW; RBC URINE 0-2 /hpf (0-2); SQUAMOUS EPITHELIAL CELL URINE NONE SEEN /lpf (RARE/1+); YEAST URINE NONE SEEN
[2024-02-20 09:54] LABS: BASOPHILS % 1.4 % (0.0-2.0); EOSINOPHILS % 3.1 % (0.0-5.0); HEMATOCRIT. 44.4 % (42.0-52.0); HEMOGLOBIN. 14.7 g/dL (14.0-18.0); LYMPHOCYTES % 35.8 % (20.0-50.0); MEAN CORPUSCULAR VOLUME 87.7 fL (80.0-94.0); MEAN PLATELET VOLUME 8.9 fl (7.4-10.4); MONOCYTES % 11.3 % (2.0-8.0); NEUTROPHILS % 48.4 % (40.0-76.0); PLATELET 190 x1000/uL (130-400); RED BLOOD CELL COUNT 5.06 mill/uL (4.7-6.1); RED CELL DISTRIBUTION WIDTH 16.5 % (11.6-14.6); WHITE BLOOD COUNT 5.3 x1000/uL (4.5-11.0)
[2024-02-20 10:00] LABS: CHLORIDE 105 mEq/L (98-107); POTASSIUM 2.9 mEq/L (3.5-5.1); SODIUM 139 mEq/L (136-145)
[2024-02-20 10:01] LABS: CALCIUM 9.5 mg/dL (8.7-10.4); CARBON DIOXIDE 33 mEq/L (21-32)
[2024-02-20 10:05] LABS: IRON 58 ug/dL (65-175)
[2024-02-20 10:06] LABS: CREATININE 1.2 mg/dL (0.6-1.3); GLUCOSE 101 mg/dL (70-105); TRIGLYCERIDE 59 mg/dL (0-150); UREA NITROGEN BLOOD 14 mg/dL (9-23)
[2024-02-20 10:07] LABS: LDL CHOLESTEROL 157 mg/dL (5-100)
[2024-02-20 10:08] LABS: ALANINE AMINOTRANSFERASE 10 IU/L (10-49); ALBUMIN 4.3 g/dL (3.2-4.8); ASPARTATE AMINOTRANSFERASE 22 IU/L (<34); CHOLESTEROL 188 mg/dL (<200); HDL CHOLESTEROL 42 mg/dL (>55); TOTAL IRON BINDING CAPACITY 325 ug/dl (250-425)
[2024-02-20 10:10] LABS: FERRITIN 29 ng/mL (22-322)
[2024-02-20 10:11] LABS: FOLIC ACID (FOLATE) SERUM 16.97 ng/mL (>5.38)
[2024-02-20 10:14] LABS: VITAMIN B12 SERUM 1187 pg/mL (211-911)
[2024-02-20 10:24] LABS: BILIRUBIN TOTAL 0.5 mg/dL (0.1-1.0)
[2024-02-21 15:07] LABS: *CREATININE RANDOM URINE 131.4 mg/dL (Not Estab.); MICROALBUMIN RANDOM URINE 597.8 ug/mL (Not Estab.)
== END | disposition home or self-care (01) ==
LOC: LAB 08:48
PROVIDERS: ATTEND Internal Medicine Geriatric Medicine
DX: Z00.01 Encounter for general adult medical examination with abnormal findings (principal); I10 Essential (primary) hypertension; E11.69 Type 2 diabetes mellitus with other specified complication; N40.0 Benign prostatic hyperplasia without lower urinary tract symptoms; N39.0 Urinary tract infection, site not specified
CPT/HCPCS: 36415; 80053; 80061; 81003; 82043; 82306; 82570; 82607; 82728; 82746; 83036; 83540; 83550; 84153; 84443; 85025; 86592

== ENCOUNTER → 2024-04-09 | Outpatient (CLI) | payer BC | END | disposition home or self-care (01) | LOC: CARD 07:51 | PROVIDERS: ATTEND Internal Medicine Geriatric Medicine | DX: I11.9 Hypertensive heart disease without heart failure (principal); R60.9 Edema, unspecified | CPT/HCPCS: 93306 ==

== ENCOUNTER → 2024-05-28 | Outpatient (CLI) | payer BC ==
[2024-05-28 11:00] LABS: CHLORIDE 104 mEq/L (98-107); POTASSIUM 3.3 mEq/L (3.5-5.1); SODIUM 140 mEq/L (136-145)
[2024-05-28 11:01] LABS: CALCIUM 8.8 mg/dL (8.7-10.4); CARBON DIOXIDE 31 mEq/L (21-32)
[2024-05-28 11:06] LABS: CREATININE 1.3 mg/dL (0.6-1.3); GLUCOSE 98 mg/dL (70-105); UREA NITROGEN BLOOD 14 mg/dL (9-23)
== END | disposition home or self-care (01) ==
LOC: LAB 10:27
PROVIDERS: ATTEND Internal Medicine Geriatric Medicine
DX: E11.69 Type 2 diabetes mellitus with other specified complication (principal)
CPT/HCPCS: 36415; 80048; 83036

== ENCOUNTER → 2024-09-04 | Outpatient (CLI) | payer BC ==
[2024-09-04 09:03] LABS: CHLORIDE 104 mEq/L (98-107); POTASSIUM 4.1 mEq/L (3.5-5.1); SODIUM 138 mEq/L (136-145)
[2024-09-04 09:04] LABS: CALCIUM 9.3 mg/dL (8.7-10.4); CARBON DIOXIDE 29 mEq/L (21-32)
[2024-09-04 09:05] LABS: BASOPHILS % 1.1 % (0.0-2.0); EOSINOPHILS % 2.7 % (0.0-5.0); HEMATOCRIT. 44.3 % (42.0-52.0); HEMOGLOBIN. 14.6 g/dL (14.0-18.0); LYMPHOCYTES % 31.8 % (20.0-50.0); MEAN CORPUSCULAR HEMOGLOBIN 29.3 pg (28.0-32.0); MEAN CORPUSCULAR HGB CONC 32.8 g/dL (31.0-37.0); MEAN CORPUSCULAR VOLUME 89.4 fL (80.0-94.0); MEAN PLATELET VOLUME 8.4 fl (7.4-10.4); MONOCYTES % 13.1 % (2.0-8.0); NEUTROPHILS % 51.3 % (40.0-76.0); PLATELET 169 x1000/uL (130-400); RED BLOOD CELL COUNT 4.96 mill/uL (4.7-6.1); RED CELL DISTRIBUTION WIDTH 16.1 % (11.6-14.6); WHITE BLOOD COUNT 5.9 x1000/uL (4.5-11.0)
[2024-09-04 09:09] LABS: CREATININE 1.5 mg/dL (0.6-1.3); GLUCOSE 116 mg/dL (70-105); TRIGLYCERIDE 53 mg/dL (0-150); UREA NITROGEN BLOOD 18 mg/dL (9-23)
[2024-09-04 09:10] LABS: LDL CHOLESTEROL 49 mg/dL (5-100)
[2024-09-04 09:11] LABS: ALANINE AMINOTRANSFERASE 9 IU/L (10-49); ALBUMIN 4.1 g/dL (3.2-4.8); ASPARTATE AMINOTRANSFERASE 17 IU/L (<34); BILIRUBIN TOTAL 0.7 mg/dL (0.1-1.0); CHOLESTEROL 96 mg/dL (<200); HDL CHOLESTEROL 36 mg/dL (>55); PROTEIN TOTAL 7.8 g/dL (6.0-8.3)
== END | disposition home or self-care (01) ==
LOC: LAB 08:29
PROVIDERS: ATTEND Internal Medicine Geriatric Medicine
DX: I11.0 Hypertensive heart disease with heart failure (principal); I50.9 Heart failure, unspecified
CPT/HCPCS: 36415; 80053; 80061; 83036; 84133; 85025

== ENCOUNTER → 2024-12-05 | Outpatient (CLI) | payer BC ==
[2024-12-05 11:03] LABS: HEMOGLOBIN. 11.9 g/dL (14.0-18.0); MEAN CORPUSCULAR HEMOGLOBIN 30.3 pg (28.0-32.0); MEAN CORPUSCULAR VOLUME 91.7 fL (80.0-94.0); MEAN PLATELET VOLUME 8.1 fl (7.4-10.4); PLATELET 162 x1000/uL (130-400); RED BLOOD CELL COUNT 3.93 mill/uL (4.7-6.1); RED CELL DISTRIBUTION WIDTH 16.4 % (11.6-14.6); WHITE BLOOD COUNT 5.4 x1000/uL (4.5-11.0)
[2024-12-05 11:11] LABS: CHLORIDE 106 mEq/L (98-107); SODIUM 142 mEq/L (136-145)
[2024-12-05 11:12] LABS: CALCIUM 9.1 mg/dL (8.7-10.4); CARBON DIOXIDE 29 mEq/L (21-32); DIFFERENTIAL COMMENT 1
[2024-12-05 11:13] LABS: CLARITY URINE CLEAR (CLEAR); COLOR URINE YELLOW (YELLOW); GLUCOSE URINE NEGATIVE (NEGATIVE); KETONES URINE NEGATIVE (NEGATIVE); LEUKOCYTE ESTERASE URINE 1+ (NEGATIVE); NITRITE URINE NEGATIVE (NEGATIVE); OCCULT BLOOD URINE NEGATIVE (NEGATIVE); PH URINE 5.5 (4.5-8.0); PROTEIN URINE NEGATIVE (NEGATIVE); SPECIFIC GRAVITY URINE 1.016 (1.005-1.030); UROBILINOGEN URINE 0.2 E.U./dL (0.2-1.0)
[2024-12-05 11:17] LABS: CREATININE 1.5 mg/dL (0.6-1.3); GLUCOSE 99 mg/dL (70-105)
[2024-12-05 11:18] LABS: LDL CHOLESTEROL 44 mg/dL (5-100); TRIGLYCERIDE 28 mg/dL (0-150); UREA NITROGEN BLOOD 22 mg/dL (9-23)
[2024-12-05 11:19] LABS: ALANINE AMINOTRANSFERASE 11 IU/L (10-49); ALBUMIN 4.1 g/dL (3.2-4.8); ASPARTATE AMINOTRANSFERASE 17 IU/L (<34); CHOLESTEROL 93 mg/dL (<200); HDL CHOLESTEROL 36 mg/dL (>55)
[2024-12-05 11:20] LABS: BILIRUBIN TOTAL 0.7 mg/dL (0.1-1.0); PROTEIN TOTAL 7.4 g/dL (6.0-8.3)
[2024-12-05 11:22] LABS: THYROID STIMULATING HORMONE 2.57 uIU/mL (0.55-4.78)
[2024-12-05 11:39] LABS: BACTERIA URINE FEW; RBC URINE NONE SEEN /hpf (0-2); SQUAMOUS EPITHELIAL CELL URINE NONE SEEN /lpf (RARE/1+); WBC URINE 0-2 /hpf (0-2); YEAST URINE NONE SEEN
[2024-12-05 15:29] LABS: PLATELET ESTIMATE NORMAL
[2024-12-05 15:30] LABS: ANISOCYTOSIS 1+
== END | disposition home or self-care (01) ==
LOC: LAB 10:12
PROVIDERS: ATTEND Internal Medicine Geriatric Medicine
DX: I10 Essential (primary) hypertension (principal); E11.69 Type 2 diabetes mellitus with other specified complication; E87.6 Hypokalemia
CPT/HCPCS: 36415; 80053; 80061; 81003; 82088; 82533; 83036; 83735; 83921; 84443; 85025

== ENCOUNTER → 2025-01-24 | Outpatient (CLI) | payer BC ==
[2025-01-24 08:17] LABS: BASOPHILS % 1.3 % (0.0-2.0); EOSINOPHILS % 3.8 % (0.0-5.0); HEMATOCRIT. 39.2 % (42.0-52.0); HEMOGLOBIN. 12.8 g/dL (14.0-18.0); LYMPHOCYTES % 32.1 % (20.0-50.0); MEAN CORPUSCULAR HEMOGLOBIN 30.2 pg (28.0-32.0); MEAN CORPUSCULAR HGB CONC 32.7 g/dL (31.0-37.0); MEAN CORPUSCULAR VOLUME 92.1 fL (80.0-94.0); MEAN PLATELET VOLUME 8.4 fl (7.4-10.4); MONOCYTES % 13.5 % (2.0-8.0); NEUTROPHILS % 49.3 % (40.0-76.0); PLATELET 168 x1000/uL (130-400); RED BLOOD CELL COUNT 4.26 mill/uL (4.7-6.1); RED CELL DISTRIBUTION WIDTH 14.3 % (11.6-14.6); WHITE BLOOD COUNT 4.6 x1000/uL (4.5-11.0)
[2025-01-24 08:38] LABS: CARBON DIOXIDE 30 mEq/L (21-32); CHLORIDE 107 mEq/L (98-107); SODIUM 143 mEq/L (136-145)
[2025-01-24 08:39] LABS: CALCIUM 9.4 mg/dL (8.7-10.4)
[2025-01-24 08:43] LABS: CREATININE 1.3 mg/dL (0.6-1.3); GLUCOSE 111 mg/dL (70-105)
[2025-01-24 08:44] LABS: TRIGLYCERIDE 32 mg/dL (0-150); UREA NITROGEN BLOOD 17 mg/dL (9-23)
[2025-01-24 08:45] LABS: ALANINE AMINOTRANSFERASE 11 IU/L (10-49); ALBUMIN 4.1 g/dL (3.2-4.8); ASPARTATE AMINOTRANSFERASE 17 IU/L (<34); LDL CHOLESTEROL 42 mg/dL (5-100)
[2025-01-24 08:46] LABS: BILIRUBIN TOTAL 0.6 mg/dL (0.1-1.0); CHOLESTEROL 90 mg/dL (<200); HDL CHOLESTEROL 34 mg/dL (>55); PROTEIN TOTAL 7.8 g/dL (6.0-8.3); T4 FREE 1.09 ng/dL (0.89-1.76); THYROID STIMULATING HORMONE 2.09 uIU/mL (0.55-4.78)
[2025-01-24 08:56] LABS: POTASSIUM URINE RANDOM 66.4 mEq/L
[2025-01-25 13:07] LABS: *CREATININE RANDOM URINE 129.5 mg/dL (Not Estab.); MICROALBUMIN RANDOM URINE 66.4 ug/mL (Not Estab.)
== END | disposition home or self-care (01) ==
LOC: LAB 07:34
PROVIDERS: ATTEND Internal Medicine Endocrinology, Diabetes & Metabolism
DX: I10 Essential (primary) hypertension (principal); E11.9 Type 2 diabetes mellitus without complications; E78.00 Pure hypercholesterolemia, unspecified
CPT/HCPCS: 36415; 80053; 80061; 82024; 82043; 82088; 82436; 82570; 83036; 83835; 84133; 84244; 84300; 84439; 84443; 85025

== ENCOUNTER → 2025-06-10 | Outpatient (CLI) | payer BC ==
[2025-06-10 11:01] LABS: CLARITY URINE CLEAR (CLEAR); COLOR URINE YELLOW (YELLOW); GLUCOSE URINE NEGATIVE (NEGATIVE); KETONES URINE NEGATIVE (NEGATIVE); LEUKOCYTE ESTERASE URINE TRACE (NEGATIVE); NITRITE URINE NEGATIVE (NEGATIVE); OCCULT BLOOD URINE NEGATIVE (NEGATIVE); PH URINE 7.0 (4.5-8.0); PROTEIN URINE NEGATIVE (NEGATIVE); SPECIFIC GRAVITY URINE 1.014 (1.005-1.030); UROBILINOGEN URINE 0.2 E.U./dL (0.2-1.0)
[2025-06-10 11:14] LABS: CREATININE 1.5 mg/dL (0.6-1.3); TRIGLYCERIDE 51 mg/dL (0-150)
[2025-06-10 11:15] LABS: LDL CHOLESTEROL 45 mg/dL (5-100); UREA NITROGEN BLOOD 17 mg/dL (9-23)
[2025-06-10 11:16] LABS: ASPARTATE AMINOTRANSFERASE 18 IU/L (<34); BILIRUBIN TOTAL 0.7 mg/dL (0.1-1.0)
[2025-06-10 11:17] LABS: PROTEIN TOTAL 7.9 g/dL (6.0-8.3)
[2025-06-10 11:24] LABS: FOLIC ACID (FOLATE) SERUM 12.58 ng/mL (>5.38)
[2025-06-10 11:52] LABS: BACTERIA URINE RARE; RBC URINE NONE SEEN /hpf (0-2); SQUAMOUS EPITHELIAL CELL URINE NONE SEEN /lpf (RARE/1+); YEAST URINE NONE SEEN
[2025-06-12 09:10] LABS: PROSTATE SPECIFIC AG TOTAL 2.6 ng/mL (0.0-4.0)
[2025-06-12 10:11] LABS: VITAMIN D 25-OH 35.6 ng/mL (30.0-100.0)
== END | disposition home or self-care (01) ==
LOC: EDBD 09:33 → LAB 09:33
PROVIDERS: ATTEND Internal Medicine Geriatric Medicine
DX: I10 Essential (primary) hypertension (principal); E11.69 Type 2 diabetes mellitus with other specified complication; E78.5 Hyperlipidemia, unspecified; J30.9 Allergic rhinitis, unspecified
CPT/HCPCS: 36415; 80053; 80061; 81003; 82306; 82728; 82746; 83036; 83540; 83550; 84153; 84443; 84550; 86003; 86592

== ENCOUNTER → 2025-07-25 | Outpatient (CLI) | payer BC ==
[2025-07-25 08:52] LABS: CLARITY URINE CLEAR (CLEAR); COLOR URINE YELLOW (YELLOW); GLUCOSE URINE NEGATIVE (NEGATIVE); KETONES URINE NEGATIVE (NEGATIVE); LEUKOCYTE ESTERASE URINE 1+ (NEGATIVE); NITRITE URINE NEGATIVE (NEGATIVE); OCCULT BLOOD URINE NEGATIVE (NEGATIVE); PH URINE 5.5 (4.5-8.0); PROTEIN URINE NEGATIVE (NEGATIVE); SPECIFIC GRAVITY URINE 1.019 (1.005-1.030); UROBILINOGEN URINE 0.2 E.U./dL (0.2-1.0)
[2025-07-25 09:06] LABS: CREATININE 1.4 mg/dL (0.6-1.3)
[2025-07-25 09:07] LABS: TRIGLYCERIDE 60 mg/dL (0-150); UREA NITROGEN BLOOD 18 mg/dL (9-23)
[2025-07-25 09:08] LABS: ASPARTATE AMINOTRANSFERASE 17 IU/L (<34); BASOPHILS % 0.9 % (0.0-2.0); BILIRUBIN TOTAL 0.7 mg/dL (0.1-1.0); EOSINOPHILS % 2.2 % (0.0-5.0); HEMATOCRIT. 40.2 % (42.0-52.0); HEMOGLOBIN. 12.9 g/dL (14.0-18.0); LDL CHOLESTEROL 51 mg/dL (5-100); LYMPHOCYTES % 30.7 % (20.0-50.0); MEAN PLATELET VOLUME 8.4 fl (7.4-10.4); MONOCYTES % 12.1 % (2.0-8.0); NEUTROPHILS % 54.1 % (40.0-76.0); PLATELET 174 x1000/uL (130-400); RED BLOOD CELL COUNT 4.44 mill/uL (4.7-6.1); RED CELL DISTRIBUTION WIDTH 16.9 % (11.6-14.6)
[2025-07-25 09:09] LABS: PHOSPHORUS 3.9 mg/dL (2.5-4.9); PROTEIN TOTAL 8.0 g/dL (6.0-8.3)
[2025-07-25 09:24] LABS: VITAMIN B12 SERUM 969 pg/mL (211-911)
[2025-07-25 09:44] LABS: MUCUS URINE TRACE /lpf (NONE/TRACE)
[2025-07-25 09:46] LABS: BACTERIA URINE TRACE; RBC URINE 0-2 /hpf (0-2); SQUAMOUS EPITHELIAL CELL URINE RARE /lpf (RARE/1+); WBC URINE 0-2 /hpf (0-2)
== END | disposition home or self-care (01) ==
LOC: LAB 08:18
PROVIDERS: ATTEND Internal Medicine Geriatric Medicine
DX: I10 Essential (primary) hypertension (principal); E11.69 Type 2 diabetes mellitus with other specified complication
CPT/HCPCS: 36415; 80053; 80061; 81003; 82607; 83036; 83540; 83550; 83735; 84100; 84443; 84550; 85025